=== PATIENT | female | born 1990 | race African-American/Black ===

== ENCOUNTER 2018-07-23 17:05 | Emergency (ER) | payer BC ==
[2018-07-23] MEDS ORDERED: IBUPROFEN 200 MG TAB PO ONE (17:54)
--- NOTE | 2018-07-23 18:55 | ER ---
Nurse's Notes [facility] Name: Kathryn Kirkland Age: 28 yrs Sex: Female : 1990 Arrival Date: 07/23/2018 Time: 17:06 Bed 10 Private MD: Diagnosis: Streptococcal tonsillitis Presentation: 07/23 17:37 Presenting complaint: Patient states: sore throat since yesterday, flu like symptoms ch today. Transition of care: patient was not received from another setting of care. Onset of symptoms was July 22, 2018. Risk Assessment: Do you want to hurt yourself or someone else? Patient reports no desire to harm self or others. Initial Sepsis Screen: Does the patient meet any 2 criteria? No. Patient's initial sepsis screen is negative. Does the patient have a suspected source of infection? No. Patient's initial sepsis screen is negative. Care prior to arrival: None. 17:37 Method Of Arrival: Ambulatory 17:37 Acuity: FAUZIA 4 ch Triage Assessment: 17:38 General: Appears in no apparent distress. comfortable, Behavior is calm, cooperative, ch appropriate for age. Pain: Complains of pain in throat, generalized body aches. 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 Patient has never been vaccinated. - Social history:: Smoking status: Patient/guardian denies using tobacco, Patient/guardian denies using alcohol, street drugs. - Ebola Screening: : Patient negative for fever greater than or equal to 101.5 degrees Fahrenheit, and additional compatible Ebola Virus Disease symptoms Patient denies exposure to infectious person Patient denies travel to an Ebola-affected area in the 21 days before illness onset No symptoms or risks identified at this time. Screenin:11 Abuse screen: Denies threats or abuse. Denies injuries from another. Nutritional ss screening: No deficits noted. Tuberculosis screening: No symptoms or risk factors identified. Never had TB. Fall Risk None identified. Assessment: 18:11 General: Appears uncomfortable, ill, Behavior is calm, cooperative, Reports chills for ss 12-24 hours, fever for 12-24 hours, feeling ill for 12-24 hours, fatigue for 12-24 hours. Pain: Pain currently is 7 out of 10 on a pain scale. Neuro: Level of Consciousness is awake, alert. Cardiovascular: Capillary refill < 3 seconds is brisk in bilateral fingers. Respiratory: Airway is patent Respiratory effort is even, unlabored, Respiratory pattern is regular, symmetrical. GI: Patient currently denies abdominal pain, diarrhea, nausea, vomiting. : No signs and/or symptoms were reported regarding the genitourinary system. EENT: Oral mucosa is moist. Throat is clear. Derm: Skin is intact, is healthy with good turgor, Skin is pink, warm \T\ dry. normal. Musculoskeletal: Circulation, motion, and sensation intact. Range of motion: intact in all extremities, Swelling absent. Vital Signs: 17:38 BP 122 / 75; Pulse 102; Resp 16; Temp 101.1(O); Pulse Ox 99% on R/A; Weight 81.65 kg; Height 5 ft. 5 in. (165.10 cm); Pain 8/10; 18:17 Temp 100.5(O); ss 17:38 Body Mass Index 29.95 (81.65 kg, 165.10 cm) ED Course: 17:06 Patient arrived in ED. as 17:38 Triage completed. 17:38 Arm band placed on left wrist. Patient placed in waiting room. Antipyretics given from triage as ordered by an ER provider. 17:56 Anibal Rai PA is [facility] 17:56 Neftali Christensen MD is Attending Physician. jr8 18:11 Kay Vogt, JAMES is Primary Nurse. 18:11 Patient has correct armband on for positive identification. Bed in low position. Call ss light in reach. 18:17 No provider procedures requiring assistance completed. Patient did not have IV access ss during this emergency room visit. Administered Medications: 17:42 Drug: Motrin 600 mg Route: PO; 18:56 Follow up: Response: No adverse reaction; Temperature is decreased 19:01 Drug: Augmentin 875 mg Route: PO; 19:30 Follow up: Response: No adverse reaction; Medication administered at discharge. Outcome: 18:54 Discharge ordered by . [facility] 19:29 Discharged to home ambulatory. 19:29 Condition: good 19:29 Discharge instructions given to patient, Instructed on discharge instructions, follow up and referral plans. medication usage, Demonstrated understanding of instructions, follow-up care, medications. 19:31 Patient left the ED. Signatures: Chinyere Montano, RN Yani Lynn ch, Shelby, RN RN Anibal Rai PA PA jr8
--- NOTE | 2018-07-23 18:55 | EDPHYS ---
Physician Documentation [facility] Name: Kathryn Kirkland Age: 28 yrs Sex: Female : 1990 Arrival Date: 07/23/2018 Time: 17:06 Bed 10 Private MD: ED Physician Neftali Christensen HPI: 07/23 18:53 This 28 yrs old Black Female presents to ER via Ambulatory with complaints of Flu jr8 Symptoms. 18:53 Onset: The symptoms/episode began/occurred acutely, today. Associated signs and jr8 symptoms: Pertinent positives: Headache, fevers, body aches, sore throat, sinus congestion . The patient has not experienced similar symptoms in the past. The patient has not recently seen a physician. 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 Patient has never been vaccinated. - Social history:: Smoking status: Patient/guardian denies using tobacco, Patient/guardian denies using alcohol, street drugs. - Ebola Screening: : Patient negative for fever greater than or equal to 101.5 degrees Fahrenheit, and additional compatible Ebola Virus Disease symptoms Patient denies exposure to infectious person Patient denies travel to an Ebola-affected area in the 21 days before illness onset No symptoms or risks identified at this time. ROS: 18:53 Neck: Negative for injury, pain, and swelling, Cardiovascular: Negative for chest pain, jr8 palpitations, and edema, Respiratory: Negative for shortness of breath, cough, wheezing, and pleuritic chest pain, Abdomen/GI: Negative for abdominal pain, nausea, vomiting, diarrhea, and constipation, Back: Negative for injury and pain, MS/Extremity: Negative for injury and deformity, Skin: Negative for injury, rash, and discoloration, Neuro: Negative for headache, weakness, numbness, tingling, and seizure. 18:53 Constitutional: Positive for body aches, chills, fever. 18:53 ENT: Positive for sinus congestion, sore throat. Exam: 18:53 Eyes: Pupils equal round and reactive to light, extra-ocular motions intact. Lids and jr8 lashes normal. Conjunctiva and sclera are non-icteric and not injected. Cornea within normal limits. Periorbital areas with no swelling, redness, or edema. ENT: Nares patent. No nasal discharge, no septal abnormalities noted. Tympanic membranes are normal and external auditory canals are clear. Oropharynx with redness. No swelling, or masses, exudates, or evidence of obstruction, uvula midline. Mucous membranes moist. Neck: Trachea midline, no thyromegaly or masses palpated, and no cervical lymphadenopathy. Supple, full range of motion without nuchal rigidity, or vertebral point tenderness. No Meningismus. Cardiovascular: Regular rate and rhythm with a normal S1 and S2. No gallops, murmurs, or rubs. Normal PMI, no JVD. No pulse deficits. Respiratory: Lungs have equal breath sounds bilaterally, clear to auscultation and percussion. No rales, rhonchi or wheezes noted. No increased work of breathing, no retractions or nasal flaring. Abdomen/GI: Soft, non-tender, with normal bowel sounds. No distension or tympany. No guarding or rebound. No evidence of tenderness throughout. Back: No spinal tenderness. No costovertebral tenderness. Full range of motion. Skin: Warm, dry with normal turgor. Normal color with no rashes, no lesions, and no evidence of cellulitis. MS/ Extremity: Pulses equal, no cyanosis. Neurovascular intact. Full, normal range of motion. Neuro: Awake and alert, GCS 15, oriented to person, place, time, and situation. Cranial nerves II-XII grossly intact. Motor strength 5/5 in all extremities. Sensory grossly intact. Cerebellar exam normal. Normal gait. Vital Signs: 17:38 BP 122 / 75; Pulse 102; Resp 16; Temp 101.1(O); Pulse Ox 99% on R/A; Weight 81.65 kg; ch Height 5 ft. 5 in. (165.10 cm); Pain 8/10; 18:17 Temp 100.5(O); ss 17:38 Body Mass Index 29.95 (81.65 kg, 165.10 cm) ch MDM: 18:07 Patient medically screened. deni 18:52 Data reviewed: vital signs, nurses notes, lab test result(s), and as a result, I will jr8 discharge patient. Data interpreted: Pulse oximetry: on room air is 99 %. Interpretation: normal. Counseling: I had a detailed discussion with the patient and/or guardian regarding: the historical points, exam findings, and any diagnostic results supporting the discharge/admit diagnosis, lab results, the need for outpatient follow up, a family practitioner, to return to the emergency department if symptoms worsen or persist or if there are any questions or concerns that arise at home. 07/23 17:37 Order name: Flu 07/23 17:37 Order name: Strep 07/23 17:38 Order name: Influenza Screen (A ; Complete Time: 18:51 EDMS 07/23 17:38 Order name: Group A Streptococcus Rapid Sc; Complete Time: 18:51 EDMS Administered Medications: 17:42 Drug: Motrin 600 mg Route: PO; 18:56 Follow up: Response: No adverse reaction; Temperature is decreased 19:01 Drug: Augmentin 875 mg Route: PO; 19:30 Follow up: Response: No adverse reaction; Medication administered at discharge. ss Disposition: 07/23/18 18:54 Discharged to Home. Impression: Streptococcal tonsillitis. - Condition is Stable. - Discharge Instructions: Strep Throat. - Prescriptions for Augmentin 875- 125 mg Oral Tablet - take 1 tablet by ORAL route every 12 hours for 10 days; 20 tablet. - Work release form, Medication Reconciliation Form, Thank You Letter, Antibiotic Education, Prescription Opioid Use form. - Follow up: Private Physician; When: 1 week; Reason: Recheck today's complaints, Continuance of care, Re-evaluation by your physician. - Problem is new. - Symptoms have improved. - Notes: Tylenol and Motrin for fevers, body ahces, chills Addendum: 07/25/2018 09:29 Co-signature as Attending Physician, Neftali Christensen MD I agree with the assessment and c morin plan of care. Signatures: Dispatcher [facility] Chinyere Montano RN RN ch Anderson, Corey, MD MD cha Smirch, Shelby, RN RN Anibal Rai PA PA jr8 Corrections: (The following items were deleted from the chart) 07/23 19:31 18:54 07/23/2018 18:54 Discharged to Home. Impression: Streptococcal tonsillitis. ss Condition is Stable. Forms are Medication Reconciliation Form, Thank You Letter, Antibiotic Education, Prescription Opioid Use. Follow up: Private Physician; When: 1 week; Reason: Recheck today's complaints, Continuance of care, Re-evaluation by your physician. Problem is new. Symptoms have improved. jr8
[2018-07-23] MEDS ORDERED: AMOX/K CLAV 875 MG TAB ONE (19:09)
[2018-07-23 20:22] VITALS: BP 122/75; O2SAT 99
[2018-07-23 20:25] VITALS: TEMP 100.5
== END 2018-07-23 19:31 | disposition home or self-care (01) ==
LOC: ER 17:05
DX: J02.0 Streptococcal pharyngitis (principal)
CPT/HCPCS: 87081; 87804; 99283

== ENCOUNTER 2018-08-02 11:49 | Emergency (ER) | payer BC ==
[2018-08-02] MEDS ORDERED: ACETAMINOPHEN 500 MG TAB ONE (12:12)
[2018-08-02] MEDS ORDERED: IBUPROFEN 400 MG TAB ONE (13:48)
[2018-08-02] MEDS ORDERED: NA CHLORIDE 0.9% 1,000 ML ONE (13:48)
[2018-08-02 13:59] LABS: Absolute Lymphocytes (CBC) 0.8 K/uL (0.7-4.9); Absolute Monocytes 0.7 K/uL (0.1-1.3); Absolute Neutrophil 7.5 K/uL (1.8-8.0); Basophils % 0.6 % (0-1.3); Eosinophils % 1.2 % (0-4.4); Hematocrit 32.6 % (36.0-45.0); Lymphocytes % 9.1 % (15.3-44.8); MPV 6.9 fL (7.6-11.3); Monocytes % 7.4 % (3.3-12.3)
--- NOTE | 2018-08-02 14:03 | RAD REPORT ---
EXAM DESCRIPTION: RAD - Chest Pa And Lat (2 Views) - 08/02/2018 1:56 pm CLINICAL HISTORY: COUGH Chest pain. COMPARISON: No comparisons FINDINGS: The lungs are clear. The heart is normal in size. No displaced fractures. IMPRESSION: No acute or concerning finding suspected.
[2018-08-02 14:24] LABS: ALT/SGPT 28 U/L (12-78); AST/SGOT 21 U/L (15-37); Albumin 3.7 g/dL (3.4-5.0); Alkaline Phosphatase 56 U/L (45-117); BUN Blood Urea Nitrogen 7 mg/dL (7-18); Bicarbonate 26 mmol/L (21-32); Bilirubin Total 0.2 mg/dL (0.2-1.0); Glucose Level 131 mg/dL (74-106); Potassium 3.2 mmol/L (3.5-5.1); Protein, Total 8.4 g/dL (6.4-8.2); Sodium Level 138 mmol/L (136-145)
--- NOTE | 2018-08-02 14:41 | EDPHYS ---
Physician Documentation [facility] Name: Kathryn Kirkland Age: 28 yrs Sex: Female : 1990 Arrival Date: 08/02/2018 Time: 11:50 Bed 19 Private MD: Rikki Holt ED Physician Neftali Christensen HPI: 08/02 13:31 This 28 yrs old Black Female presents to ER via Ambulatory with complaints of Flu deni Symptoms. 13:31 The patient or guardian reports cough, difficulty breathing, flu symptoms, arthralgias, deni low-grade fever, myalgias. Onset: The symptoms/episode began/occurred 3 day(s) ago. Severity of symptoms: At their worst the symptoms were mild, in the emergency department the symptoms. Modifying factors: The symptoms are alleviated by nothing, the symptoms are aggravated by nothing. Associated signs and symptoms: The patient has no apparent associated signs or symptoms. The patient has not experienced similar symptoms in the past. Historical: - Allergies: 11:57 No Known Drug Allergies; sv - PMHx: 11:57 None; sv - PSHx: 11:57 None; sv - Immunization history:: Flu vaccine is not up to date. - Social history:: Smoking status: Patient/guardian denies using tobacco. - Ebola Screening: : No symptoms or risks identified at this time. - Family history:: not pertinent. ROS: 13:31 Constitutional: Negative for fever, chills, and weight loss, Eyes: Negative for injury, deni pain, redness, and discharge, ENT: Negative for injury, pain, and discharge, Neck: Negative for injury, pain, and swelling, Abdomen/GI: Negative for abdominal pain, nausea, vomiting, diarrhea, and constipation, Back: Negative for injury and pain, : Negative for injury, bleeding, discharge, and swelling, MS/Extremity: Negative for injury and deformity, Skin: Negative for injury, rash, and discoloration, Neuro: Negative for headache, weakness, numbness, tingling, and seizure, Psych: Negative for depression, anxiety, suicide ideation, homicidal ideation, and hallucinations, Allergy/Immunology: Negative for hives, rash, and allergies, Endocrine: Negative for neck swelling, polydipsia, polyuria, polyphagia, and marked weight changes, Hematologic/Lymphatic: Negative for swollen nodes, abnormal bleeding, and unusual bruising. 13:31 Cardiovascular: Positive for palpitations. 13:31 Respiratory: Positive for cough, shortness of breath, at rest. Exam: 13:31 Head/Face: Normocephalic, atraumatic. Eyes: Pupils equal round and reactive to light, deni extra-ocular motions intact. Lids and lashes normal. Conjunctiva and sclera are non-icteric and not injected. Cornea within normal limits. Periorbital areas with no swelling, redness, or edema. ENT: Nares patent. No nasal discharge, no septal abnormalities noted. Tympanic membranes are normal and external auditory canals are clear. Oropharynx with no redness, swelling, or masses, exudates, or evidence of obstruction, uvula midline. Mucous membranes moist. Neck: Trachea midline, no thyromegaly or masses palpated, and no cervical lymphadenopathy. Supple, full range of motion without nuchal rigidity, or vertebral point tenderness. No Meningismus. Chest/axilla: Normal chest wall appearance and motion. Nontender with no deformity. No lesions are appreciated. Respiratory: Lungs have equal breath sounds bilaterally, clear to auscultation and percussion. No rales, rhonchi or wheezes noted. No increased work of breathing, no retractions or nasal flaring. Abdomen/GI: Soft, non-tender, with normal bowel sounds. No distension or tympany. No guarding or rebound. No evidence of tenderness throughout. Back: No spinal tenderness. No costovertebral tenderness. Full range of motion. Female : Normal external genitalia. Skin: Warm, dry with normal turgor. Normal color with no rashes, no lesions, and no evidence of cellulitis. MS/ Extremity: Pulses equal, no cyanosis. Neurovascular intact. Full, normal range of motion. Neuro: Awake and alert, GCS 15, oriented to person, place, time, and situation. Cranial nerves II-XII grossly intact. Motor strength 5/5 in all extremities. Sensory grossly intact. Cerebellar exam normal. Normal gait. 13:31 Cardiovascular: Rate: tachycardic, Rhythm: regular, Pulses: Pulses are 4+ in bilateral radial, brachial, femoral, popliteal, posterior tibial and and dorsalis pedis arteries.. Heart sounds: murmur, Edema: is not appreciated, JVD: is not appreciated. Vital Signs: 11:57 BP 132 / 82; Pulse 122; Resp 18; Temp 103.1(O); Weight 81.65 kg; Height 5 ft. 5 in. sv (165.10 cm); Pain 3/10; 14:24 Pulse 95; Resp 22 S; Temp 99.7(O); Pulse Ox 100% on R/A; Pain 6/10; jl7 11:57 Body Mass Index 29.95 (81.65 kg, 165.10 cm) sv MDM: 12:56 Patient medically screened. [facility] 13:31 Data reviewed: vital signs, nurses notes, lab test result(s), EKG, radiologic studies, [facility] plain films. 08/02 13:30 Order name: CBC with Diff [facility] 08/02 13:30 Order name: Comprehensive Metabolic Panel; Complete Time: 14:[address] [facility] 08/02 13:30 Order name: Blood Culture Adult (2) [facility] 08/02 13:30 Order name: Flu; Complete Time: 14:[address] [facility] 08/02 14:11 Order name: CBC Smear Scan EDMS 08/02 14:52 Order name: Urine Culture 5 08/02 13:30 Order name: Chest Pa And Lat (2 Views) XRAY; Complete Time: 14:[address] [facility] 08/02 14:57 Order name: Urine Dipstick--Ancillary (enter results) 08/02 14:58 Order name: Urine --Ancillary (enter results) 08/02 13:30 Order name: Urine Dipstick-Ancillary (obtain specimen); Complete Time: 14:[address] [facility] 08/02 13:30 Order name: Urine Test (obtain specimen); Complete Time: 14:[address] [facility] Administered Medications: 12:01 Drug: Tylenol 1000 mg Route: PO; sv 14:00 Follow up: Response: No adverse reaction; Temperature is decreased 7 14:00 Drug: NS 0.9% 1000 ml Route: IV; Rate: 1 bolus; Site: right antecubital; jl7 15:09 Follow up: IV Status: Completed infusion; IV Intake: 1000ml 7 14:00 Drug: Motrin 800 mg Route: PO; jl7 15:09 Follow up: Response: No adverse reaction 7 15:00 Drug: Dextromethorphan-Guaifenesin Liquid 10 mg-100 mg/5 mL 10 ml Route: PO; jl7 15:09 Follow up: Response: No adverse reaction jl7 15:01 Drug: Potassium Effervescent Tablet 25 mEq Route: PO; jl7 15:09 Follow up: Response: No adverse reaction 7 15:04 Drug: Tamiflu 75 mg Route: PO; 15:09 Follow up: Response: No adverse reaction jl7 Disposition: 08/02/18 14:40 Discharged to Home. Impression: Fever, unspecified, Acute upper respiratory infection, unspecified, Influenza due to identified novel influenza A virus, Hypokalemia. - Condition is Stable. - Discharge Instructions: Potassium Content of Foods, Fever, Adult, Influenza, Adult, Upper Respiratory Infection, Adult, Cool Mist Vaporizer, Upper Respiratory Infection, Adult, Vfwv-[id number], Influenza, Adult, [id number]-[id number]-[id number], Cough, Adult, Rykd-tf-Dzrh, Cough, Adult, Fever, Adult, [id number]. - Prescriptions for Bromfed DM 2- 30-10 mg/5 mL Oral syrup - take 10 milliliter by ORAL route every 6 hours; 160 milliliter. Tamiflu 75 mg Oral Capsule - take 1 tablet by ORAL route every 12 hours for 5 days; 10 tablet. Zithromax Z- Jordan 250 mg Oral Tablet - take 1 tablet by ORAL route as directed for 5 days Day 1 - take two (2) tablets one time. Day 2, 3, 4 , 5 take one (1) tablet once daily.; 6 tablet. - Medication Reconciliation Form, Thank You Letter, Antibiotic Education, Prescription Opioid Use, Work release form form. - Follow up: Rikki Holt; When: 2 - 3 days; Reason: Recheck today's complaints, Continuance of care, Re-evaluation by your physician. - Problem is new. - Symptoms have improved. Signatures: Dispatcher [employer] [facility] Vivian Thornton RN RN sv Anderson, Corey, MD MD cha Leal, Jahala, RN RN jl7 Corrections: (The following items were deleted from the chart) 14:41 14:40 08/02/2018 14:40 Discharged to Home. Impression: Fever, unspecified; Acute upper deni respiratory infection, unspecified. Condition is Stable. Discharge Instructions: Upper Respiratory Infection, Adult, Cool Mist Vaporizer, Upper Respiratory Infection, Adult, [id number], Cough, Adult, Uqvd-ov-[id number], Cough, Adult, Fever, Adult, Fever, Adult, [id number]-gf-[id number]. Prescriptions for Bromfed DM 2-30-10 mg/5 mL Oral syrup - take 10 milliliter by ORAL route every 6 hours; 160 milliliter, Tamiflu 75 mg Oral Capsule - take 1 tablet by ORAL route every 12 hours for 5 days; 10 tablet, Zithromax 500 mg Oral Tablet - take 1 tablet by ORAL route once daily for 5 days; 5 tablet. and Forms are Medication Reconciliation Form, Thank You Letter, Antibiotic Education, Prescription Opioid Use. Follow up: Rikki Holt; When: 2 - 3 days; Reason: Recheck today's complaints, Continuance of care, Re-evaluation by your physician. Problem is new. Symptoms have improved. [facility] 15:32 14:41 08/02/2018 14:40 Discharged to Home. Impression: Fever, unspecified; Acute upper jl7 respiratory infection, unspecified; Influenza due to identified novel influenza A virus; Hypokalemia. Condition is Stable. Discharge Instructions: Upper Respiratory Infection, Adult, Cool Mist Vaporizer, Upper Respiratory Infection, Adult, [id number]-[id number], Cough, Adult, [id number]-uo-Dcgy, Cough, Adult, Fever, Adult, Fever, Adult, [id number]-vb-Rmed. Prescriptions for Bromfed DM 2-30-10 mg/5 mL Oral syrup - take 10 milliliter by ORAL route every 6 hours; 160 milliliter, Tamiflu 75 mg Oral Capsule - take 1 tablet by ORAL route every 12 hours for 5 days; 10 tablet, Zithromax 500 mg Oral Tablet - take 1 tablet by ORAL route once daily for 5 days; 5 tablet. and Forms are Medication Reconciliation Form, Thank You Letter, Antibiotic Education, Prescription Opioid Use. Follow up: Rikki Holt; When: 2 - 3 days; Reason: Recheck today's complaints, Continuance of care, Re-evaluation by your physician. Problem is new. Symptoms have improved. deni
--- NOTE | 2018-08-02 14:41 | ER ---
Nurse's Notes [facility] Name: Kathryn Kirkland Age: 28 yrs Sex: Female : 1990 Arrival Date: 08/02/2018 Time: 11:50 Bed 19 Private MD: Rikki Holt Diagnosis: Fever, unspecified;Acute upper respiratory infection, unspecified;Influenza due to identified novel influenza A virus;Hypokalemia Presentation: 08/02 11:56 Presenting complaint: Patient states: cough, bodyaches x 2 weeks. Dx with strep 2 weeks sv ago sent home with Augmentin and still has pills left. Transition of care: patient was not received from another setting of care. Onset of symptoms was July 2018. Care prior to arrival: None. 11:56 Method Of Arrival: Ambulatory sv 11:56 Acuity: FAUZIA 3 sv 15:10 Risk Assessment: Do you want to hurt yourself or someone else? Patient reports no jl7 desire to harm self or others. Initial Sepsis Screen: Does the patient meet any 2 criteria? No. Patient's initial sepsis screen is negative. Does the patient have a suspected source of infection? No. Patient's initial sepsis screen is negative. Historical: - Allergies: 11:57 No Known Drug Allergies; sv - PMHx: 11:57 None; sv - PSHx: 11:57 None; sv - Immunization history:: Flu vaccine is not up to date. - Social history:: Smoking status: Patient/guardian denies using tobacco. - Ebola Screening: : No symptoms or risks identified at this time. - Family history:: not pertinent. Screenin:50 Abuse screen: Denies threats or abuse. Denies injuries from another. Nutritional jl7 screening: No deficits noted. Tuberculosis screening: No symptoms or risk factors identified. Fall Risk IV access (20 points). Assessment: 13:30 General: Appears in no apparent distress. uncomfortable, Behavior is calm, cooperative, jl7 appropriate for age. Pain: Complains of pain in chest Pain currently is 6 out of 10 on a pain scale. Quality of pain is described as "It's just sore when I cough.". Neuro: Level of Consciousness is awake, alert, obeys commands, Oriented to person, place, time, situation. Cardiovascular: Heart tones S1 S2 present Patient's skin is warm and dry. Respiratory: Reports cough that is non-productive, persistent Airway is patent Respiratory effort is even, unlabored, Respiratory pattern is regular, symmetrical, Breath sounds are clear bilaterally. Derm: Skin is pink, warm \\T\\ dry. Vital Signs: 11:57 BP 132 / 82; Pulse 122; Resp 18; Temp 103.1(O); Weight 81.65 kg; Height 5 ft. 5 in. sv (165.10 cm); Pain 3/10; 14:24 Pulse 95; Resp 22 S; Temp 99.7(O); Pulse Ox 100% on R/A; Pain 6/10; jl7 11:57 Body Mass Index 29.95 (81.65 kg, 165.10 cm) sv ED Course: 11:50 Patient arrived in ED. mr 11:51 Rikki Holt MD is Private Physician. mr 11:57 Triage completed. sv 11:58 Arm band placed on. sv 12:56 Neftali Christensen MD is Attending Physician. deni 13:30 Inserted saline lock: 20 gauge in right antecubital area, using aseptic technique. jl7 Blood collected. 13:30 Initial lab(s) drawn, by oh, sent to lab. First set of blood cultures drawn by oh, Flu jl7 and/or RSV swab sent to lab. 13:34 Deacon Segura RN is Primary Nurse. jl7 13:47 Second set of blood cultures drawn by oh. jl7 13:50 Patient has correct armband on for positive identification. Bed in low position. Call jl7 light in reach. Side rails up X 1. Pulse ox on. NIBP on. 13:57 Chest Pa And Lat (2 Views) XRAY In Process Unspecified. EDMS 14:40 Rikki Holt MD is Referral Physician. [facility] 15:12 Urine --Ancillary (enter results) Sent. 5 15:12 Urine Dipstick--Ancillary (enter results) Sent. 5 15:12 Urine Culture Sent. 5 15:12 Urine collected: clean catch specimen, clear. 5 15:31 No provider procedures requiring assistance completed. IV discontinued, intact, jl7 bleeding controlled, No redness/swelling at site. Pressure dressing applied. Administered Medications: 12:01 Drug: Tylenol 1000 mg Route: PO; sv 14:00 Follow up: Response: No adverse reaction; Temperature is decreased jl7 14:00 Drug: NS 0.9% 1000 ml Route: IV; Rate: 1 bolus; Site: right antecubital; 15: Follow up: IV Status: Completed infusion; IV Intake: 1000ml 14:00 Drug: Motrin 800 mg Route: PO; 15: Follow up: Response: No adverse reaction 15: Drug: Dextromethorphan-Guaifenesin Liquid 10 mg-100 mg/5 mL 10 ml Route: PO; 15: Follow up: Response: No adverse reaction 15: Drug: Potassium Effervescent Tablet 25 mEq Route: PO; 7 15: Follow up: Response: No adverse reaction 15: Drug: Tamiflu 75 mg Route: PO; 15: Follow up: Response: No adverse reaction Intake: 15:09 IV: 1000ml; Total: 1000ml. [facility] Outcome: 14:40 Discharge ordered by MD. cheema 15:31 Discharged to home ambulatory. [facility] 15:31 Condition: stable 15:31 Discharge instructions given to patient, family, Instructed on discharge instructions, follow up and referral plans. medication usage, Demonstrated understanding of instructions, follow-up care, medications, Prescriptions given X 3. 15:32 Patient left the ED. jl7 Signatures: Dispatcher [employer] Vivian Lemon, Neftali Hutchinson RN, MD MD cha Rivera, Lizzie mr GomezSummer Deacon Florentino RN RN jl7 Corrections: (The following items were deleted from the chart) 11:59 11:56 Presenting complaint: Patient states: cough, bodyaches x 2 weeks. Dx with strep 2 sv weeks ago. sv 11:59 11:57 Resp 18bpm; Temp 103.1F Oral; 81.65 kg; Height 5 ft. 5 in.; BMI: 29.9; Pain 3/10; sv sv 12:02 11:56 Acuity: FAUZIA 4 sv sv 12:02 11:57 BP 132 / 82; Resp 18bpm; Temp 103.1F Oral; 81.65 kg; Height 5 ft. 5 in.; BMI: sv 29.9; Pain 3/10; sv 14:24 13:30 Pulse 95bpm; Resp 22bpm; Spontaneous; Pulse Ox 100% RA; Temp 99.7F Oral; Pain jl7 6/10; jl7 15:05 12:00 Dextromethorphan-Guaifenesin Liquid 10 mg-100 mg/5 mL 10 ml PO jl7 jl7
[2018-08-02] MEDS ORDERED: POTASSIUM 25 MEQ EFFERV TAB ONE (15:02)
[2018-08-02] MEDS ORDERED: DEXAMETHASONE 10 MG/ML VIAL ONE (15:02)
[2018-08-02] MEDS ORDERED: OSELTAMIVIR 75 MG CAP ONE (15:02)
[2018-08-02] MEDS ORDERED: GUAIFENESIN/DM 5 ML UCUP ONE (15:04)
[2018-08-02 15:19] LABS: Anisocytosis 2+; Blood Morphology Comment NOTED (NOT SEEN); Platelet Estimate ADEQ; Urine White Blood Cell Casts OK
[2018-08-02 15:20] LABS: Hypochromasia 1+; Ovalocytes 1+
[2018-08-02 15:44] VITALS: BP 132/82
[2018-08-02 15:45] VITALS: TEMP 99.7; O2SAT 100
[2018-08-02 16:14] LABS: Urine Blood TRACE (NEG); Urine Glucose NEGATIVE (NEG); Urine Protein NEGATIVE (NEG); Urine Specific Gravity 1.015 (1.005-1.030)
[2018-08-02 16:14] LABS: Urine Specific Gravity 1.015 (1.005-1.030)
== END 2018-08-02 15:32 | disposition home or self-care (01) ==
LOC: ER 11:49
DX: J06.9 Acute upper respiratory infection, unspecified (principal); J09.X2 Influenza due to identified novel influenza A virus with other respiratory manifestations; E87.6 Hypokalemia
CPT/HCPCS: 36415; 71046; 80053; 81003; 81025; 85025; 87040; 87086; 87088; 87804; 96360; 99284; J1100; J7030

== ENCOUNTER 2019-08-26 00:50 | Emergency (ER) | payer BC, OTHER ==
[2019-08-26] MEDS ORDERED: TETRACAINE HCL 0.5% 4ML OPTH ONE (01:24)
[2019-08-26] MEDS ORDERED: FLUORESCEIN SODIUM 1 MG/WRAP ONE (01:32)
[2019-08-26] MEDS ORDERED: TOBRAMYCIN SULF 0.3% OPTH OINT ONE (02:17)
--- NOTE | 2019-08-26 02:17 | ER ---
Nurse's Notes [facility] Name: Kathryn Kirkland Age: 29 yrs Sex: Female : 1990 Arrival Date: 08/26/2019 Time: 00:52 Bed 13 Private MD: Diagnosis: Burn of cornea and conjunctival sac, right eye Presentation: 08/25 00:52 Chief complaint: Patient states: I was at work and I accidently got Lemon Plus Neutral jb4 Quat Disinfectant in my eye. I rinsed it for 10 minutes at work. It happened around 0015. 00:52 Coronavirus screen: Proceed with normal triage. Ebola Screen: No symptoms or risks jb4 identified at this time. Initial Sepsis Screen: Does the patient meet any 2 criteria? No. Patient's initial sepsis screen is negative. Does the patient have a suspected source of infection? No. Patient's initial sepsis screen is negative. Risk Assessment: Do you want to hurt yourself or someone else? Patient reports no desire to harm self or others. Onset of symptoms was August 26, 2019 at 00:15. Transition of care: patient was not received from another setting of care. 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 - Social history:: Smoking status: Patient denies any tobacco usage or history of. Patient/guardian denies using alcohol, street drugs. Screenin:52 Abuse screen: Denies threats or abuse. Nutritional screening: No deficits noted. jb4 Tuberculosis screening: No symptoms or risk factors identified. Fall Risk None identified. Assessment: 00:52 General: Appears in no apparent distress. uncomfortable, Behavior is calm, cooperative, jb4 appropriate for age, Pt reports exposure occurred at 0015, and that the contact in the affected eye was removed and eye was rinsed for 10 minutes.. Pain: Complains of pain in right eye Pain does not radiate. Pain currently is 8 out of 10 on a pain scale. Quality of pain is described as burning, Pain began 0015. Neuro: Level of Consciousness is awake, alert, obeys commands, Oriented to person, place, time, situation. Cardiovascular: Patient's skin is warm and dry. Respiratory: Airway is patent Respiratory effort is even, unlabored, Respiratory pattern is regular, symmetrical. GI: No signs and/or symptoms were reported involving the gastrointestinal system. : No signs and/or symptoms were reported regarding the genitourinary system. EENT: Sclera/Cornea are reddened in outer aspect of conjuctiva of right eye, iris of right eye and inner aspect of conjuctiva of right eye. Derm: Skin is intact, Skin is dry, Skin is normal, Skin temperature is warm. Musculoskeletal: Circulation, motion, and sensation intact. Range of motion: intact in all extremities. 01:00 Reassessment: Pt taken to eye wash station. Instructed to flush eyes for 15 minutes. jb4 Provider notified of chemical exposure. 01:05 Reassessment: Poison control contacted. Recommends checking the affected eye for jb4 damage. Continue to monitor for worsening of symptoms or improvement. If symptoms of irritation persist, refer patient to an plate drying machine tender. Provider notified. SDS for cleaning agent Lemon Plus Neutral Quat Disinfectant given to provider. Pt continues to irrigate affected eye. 01:25 Reassessment: Pt taken back to room for eye examination by provider. jb4 01:35 Reassessment: Pt taken to eye wash station for further irrigation due to provider jb4 assessment of eye ph of 8. 01:50 Reassessment: PT reports that her pain is now 6/10. Reports the entire eye is no longer jb4 hurting. It is just the lower eye lid. Provider notified. Pt taken back to room for eye examination. 01:55 Reassessment: Provider reports PH remains the same. Pt taken back to eye wash station. jb4 02:23 Reassessment: Patient appears in no apparent distress at this time. Patient and/or jb4 family updated on plan of care and expected duration. Pain level reassessed. Patient is alert, oriented x 3, equal unlabored respirations, skin warm/dry/pink. Provider reports the PH appears to have come down to 7.3. Pt reports eye is no longer burning. Pt verbalized understanding of d/c and follow up instructions. Denies questions or concerns. Ambulated out of ED with steady gait. Patient denies pain at this time. Patient states feeling better. Patient states symptoms have improved. Vital Signs: 00:52 BP 133 / 99; Pulse 83; Resp 16; Temp 98.4(O); Pulse Ox 99% on R/A; Weight 88.45 kg (R); jb4 Height 5 ft. 6 in. (167.64 cm) (R); Pain 8/10; 02:30 BP 122 / 80; Pulse 75; Resp 16; Pulse Ox 98% on R/A; jb4 00:52 Body Mass Index 31.47 (88.45 kg, 167.64 cm) jb4 ED Course: 00:52 Patient arrived in ED. cl3 00:52 Arm band placed on right wrist. jb4 00:52 Patient has correct armband on for positive identification. Bed in low position. Call jb4 light in reach. Side rails up X 1. Pulse ox on. NIBP on. 00:53 Rikki Lei RN is Primary Nurse. [facility] 01:15 Chris Olson PA is PHCP. [facility] 01:15 Neftali Christensen MD is Attending Physician. [facility] 01:33 Triage completed. jb4 02:31 No provider procedures requiring assistance completed. Patient did not have IV access jb4 during this emergency room visit. Administered Medications: 01:30 Drug: Tetracaine Drops 0.5 % 1 drops {Note: Administered by ED provider..} Route: jb4 Ophthalmic; Site: right eye; 01:45 Follow up: Response: No adverse reaction; Pain is decreased jb4 02:17 Drug: Tobramycin Ointment (0.3 %) 0.5 inches Route: Ophthalmic; Site: right eye; jb4 02:23 Follow up: Response: No adverse reaction [facility] Outcome: 02:16 Discharge ordered by . [facility] 02:31 Discharged to home ambulatory. jb4 02:31 Condition: stable 02:31 Discharge instructions given to patient, Instructed on discharge instructions, follow up and referral plans. medication usage, Demonstrated understanding of instructions, follow-up care, medications, Prescriptions given X 1. 02:34 Patient left the ED. [facility] Signatures: Chris Olson PA PA Rikki Craft RN RN jb4 Rashad Severino cl3 Corrections: (The following items were deleted from the chart) 02:32 02:23 Reassessment: Patient appears in no apparent distress at this time. Patient jb4 and/or family updated on plan of care and expected duration. Pain level reassessed. Patient is alert, oriented x 3, equal unlabored respirations, skin warm/dry/pink. Provider reports the PH appears to have come down to 7.3. Pt reports eye is no longer burning. Pt verbalized understanding of d/c and follow up instructions. Denies questions or concerns. Ambulated out of ED with steady gait. jb4
--- NOTE | 2019-08-26 02:17 | EDPHYS ---
Physician Documentation [facility] Name: Kathryn Kirkland Age: 29 yrs Sex: Female : 1990 Arrival Date: 08/26/2019 Time: 00:52 Bed 13 Private MD: ED Physician Neftali Christensen HPI: 08/25 01:15 This 29 yrs old Black Female presents to ER via Ambulatory with complaints of Director Engineering jmm In Eye. 01:15 The patient is experiencing burning. Onset: The symptoms/episode began/occurred jmm acutely, just prior to arrival. Duration: the symptoms are continuous. Aggravated by nothing. Alleviated by nothing. Associated signs and symptoms: Pertinent positives: headache. This is a 29 year old female with no chronic medical conditions that presents to the ED with complaints of right eye pain after a splash injury from Lemon-Quat Disinfectant. Patient took her contact out and irrigated for 10 minutes. Patient denies other injury. . 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 - Social history:: Smoking status: Patient denies any tobacco usage or history of. Patient/guardian denies using alcohol, street drugs. ROS: 01:15 Constitutional: Negative for fever, chills, and weight loss, Cardiovascular: Negative jmm for chest pain, palpitations, and edema, Respiratory: Negative for shortness of breath, cough, wheezing, and pleuritic chest pain. 01:15 Eyes: Positive for injury or acute deformity, pain. 01:15 Neuro: Positive for headache. 01:15 All other systems are negative. Exam: 01:15 Constitutional: This is a well developed, well nourished patient who is awake, alert, jmm and in no acute distress. Head/Face: atraumatic. 01:15 Neck: Trachea midline, Supple Chest/axilla: Normal chest wall appearance and motion. Cardiovascular: Regular rate and rhythm. No edema appreciated Respiratory: Normal respirations, no respiratory distress appreciated Abdomen/GI: Non distended, soft Back: Normal ROM 01:15 Skin: General appearance color normal MS/ Extremity: Moves all extremities, no obvious deformities appreciated, no edema noted to the lower extremities Neuro: Awake and alert, normal gait Psych: Behavior is normal, Mood is normal, Patient is cooperative and pleasant 01:15 Eyes: right eye is injected. 01:15 Eyes: Conjunctiva: injected, in the right eye. Vital Signs: 00:52 BP 133 / 99; Pulse 83; Resp 16; Temp 98.4(O); Pulse Ox 99% on R/A; Weight 88.45 kg (R); jb4 Height 5 ft. 6 in. (167.64 cm) (R); Pain 8/10; 02:30 BP 122 / 80; Pulse 75; Resp 16; Pulse Ox 98% on R/A; jb4 00:52 Body Mass Index 31.47 (88.45 kg, 167.64 cm) jb MDM: 01:15 Patient medically screened. [facility] 02:13 Data reviewed: vital signs, nurses notes. Counseling: I had a detailed discussion with linda the patient and/or guardian regarding: the historical points, exam findings, and any diagnostic results supporting the discharge/admit diagnosis, the need for outpatient follow up, to return to the emergency department if symptoms worsen or persist or if there are any questions or concerns that arise at home. ED course: Right eye irrigated for a total of 25 minutes. Patient does have complete relief of the right eye but has some mild burning at the lower eyelid. PH of 7.0 using litmus paper. Patient is advised to follow up with ophthalmology for reevaluation and otherwise given strict return precautions. Patient understood and agrees with the plan of care. . 08/25 01:31 [facility]: [facility]RIGATE E[facility]; Complete Time: 01:32 [facility] Administered Medications: 01:30 Drug: Tetracaine Drops 0.5 % 1 drops {Note: Administered by ED provider..} Route: jb4 Ophthalmic; Site: right eye; 01:45 Follow up: Response: No adverse reaction; Pain is decreased [facility] 02:17 Drug: Tobramycin Ointment (0.3 %) 0.5 inches Route: Ophthalmic; Site: right eye; jb4 02:23 Follow up: Response: No adverse reaction [facility] Disposition: 08/26/19 02:16 Discharged to Home. Impression: Burn of cornea and conjunctival sac, right eye. - Condition is Stable. - Discharge Instructions: Chemical Conjunctivitis, Adult. - Prescriptions for Tobrex 0.3 % Ophthalmic ointment - apply 1 application by OPHTHALMIC route 2 times per day; 1 tube. - Medication Reconciliation Form, Thank You Letter, Antibiotic Education, Prescription Opioid Use, Work release form form. - Follow up: Private Physician; When: 1 - 2 days; Reason: Recheck today's complaints, Continuance of care, Re-evaluation by your physician. Addendum: 08/28/2019 07:41 Co-signature as Attending Physician, Neftali Christensen MD I agree with the assessment and c morin plan of care. Signatures: Neftali Christensen MD MD cha Mickail, Joel, PA PA Rikki Beverly, RN RN jb4 Corrections: (The following items were deleted from the chart) 08/25 02:34 02:16 08/26/2019 02:16 Discharged to Home. Impression: Burn of cornea and conjunctival jb4 sac, right eye. Condition is Stable. Forms are Medication Reconciliation Form, Thank You Letter, Antibiotic Education, Prescription Opioid Use. Follow up: Private Physician; When: 1 - 2 days; Reason: Recheck today's complaints, Continuance of care, Re-evaluation by your physician. linda
[2019-08-26 02:40] VITALS: TEMP 98.4
[2019-08-26 02:42] VITALS: BP 122/80; O2SAT 98
== END 2019-08-26 02:34 | disposition home or self-care (01) ==
LOC: ER 00:50
DX: T26.11XA Burn of cornea and conjunctival sac, right eye, initial encounter (principal); X58.XXXA Exposure to other specified factors, initial encounter
CPT/HCPCS: 99283

== ENCOUNTER 2020-07-09 18:16 | Emergency (ER) | payer OTHER ==
--- OUTSIDE RECORDS SUMMARY | 2020-07-09 18:19 | XMS REPORT | Continuity of Care Document ---
:1990 Author Organization [facility] t Address [address] [place] [address] [address]. [address] [place] [address] Care Team Providers Name Role Phone DR JOHN Attending Clinician Unavailable DR JOHN Admitting Clinician Unavailable Problems This patient has no known problems. Allergies, Adverse Reactions, Alerts This patient has no known allergies or adverse reactions. Medications This patient has no known medications. Procedures This patient has no known procedures. Encounters Start End Encounter Admission Attending Care Care Encounter Source Date/Time Date/Time Type Type Clinicians Facility Department ID 2019-09-08 In[place] [facility] [id number] [facility] 00:[place]:00 [facility] Results This patient has no known results.
[2020-07-09 20:26] LABS: Absolute Lymphocytes (CBC) 2.3 K/uL (0.7-4.9); Lymphocytes % 37.5 % (15.3-44.8); MPV 7.1 fL (7.6-11.3); RBC Red Blood Cell Count 2.72 M/uL (3.86-4.86)
[2020-07-09 20:28] LABS: Hematocrit 17.3 % (36.0-45.0)
[2020-07-09 20:29] LABS: Anisocytosis 2+; Blood Morphology Comment NOTED (NOT SEEN); Hypochromasia 2+; Platelet Estimate INCR; White Blood Cell Scan OK (OK)
[2020-07-09 20:45] LABS: ALT/SGPT 27 U/L (12-78); AST/SGOT 21 U/L (15-37); Albumin 3.3 g/dL (3.4-5.0); Alkaline Phosphatase 48 U/L (45-117); BUN Blood Urea Nitrogen 9 mg/dL (7-18); Bicarbonate 26 mmol/L (21-32); Bilirubin Total 0.2 mg/dL (0.2-1.0); Glucose Level 111 mg/dL (74-106); Potassium 3.2 mmol/L (3.5-5.1); Protein, Total 7.4 g/dL (6.4-8.2); Sodium Level 143 mmol/L (136-145)
[2020-07-09] MEDS ORDERED: NA CHLORIDE 0.9% 500 ML ONE (21:58)
[2020-07-10 06:00] LABS: Hematocrit 23.2 % (36.0-45.0)
--- NOTE | 2020-07-10 06:21 | ER ---
Nurse's Notes [facility] Name: Kathryn Kirkland Age: 30 yrs Sex: Female : 1990 Arrival Date: 07/09/2020 Time: 18:18 Bed 30 Private MD: Diagnosis: Other abnormal uterine and vaginal bleeding;Anemia in other chronic diseases classified elsewhere Presentation: 07/09 18:30 Chief complaint: Patient states: Sent in by PCP for blood transfusion. HGB is low, had ll1 blood drawn here earlier today. On her period for past 4 months. Feels weak, tired, SOB, and CP at times. Coronavirus screen: Client denies travel out of the [place] in the last 14 days. At this time, the client does not indicate any symptoms associated with coronavirus-19. Ebola Screen: Patient denies travel to an Ebola-affected area in the 21 days before illness onset. Initial Sepsis Screen: Does the patient meet any 2 criteria? HR > 90 bpm. No. Patient's initial sepsis screen is negative. Does the patient have a suspected source of infection? No. Patient's initial sepsis screen is negative. Risk Assessment: Do you want to hurt yourself or someone else? Patient reports no desire to harm self or others. Onset of symptoms was March 31, 2020. 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 - Social history:: Smoking status: Patient denies any tobacco usage or history of. Screenin:21 Abuse screen: Denies threats or abuse. Nutritional screening: No deficits noted. em Tuberculosis screening: No symptoms or risk factors identified. Fall Risk None identified. Assessment: 20:00 General: Appears in no apparent distress. comfortable, Behavior is calm, cooperative, em appropriate for age. Pain: Denies pain. Neuro: Level of Consciousness is awake, alert, obeys commands, Oriented to person, place, time, situation. Cardiovascular: Capillary refill < 3 seconds Patient's skin is warm and dry. Respiratory: Reports shortness of breath on exertion Airway is patent Respiratory effort is even, unlabored, Respiratory pattern is regular, symmetrical. GI: Patient currently denies bloody stool, nausea, vomiting. : Reports vaginal bleeding that is with clots, heavy flow. Derm: Skin is intact, is healthy with good turgor, Skin is pink, warm \T\ dry. Musculoskeletal: Capillary refill < 3 seconds, Range of motion: intact in all extremities. 21:30 Reassessment: Patient appears in no apparent distress at this time. Patient and/or wh family updated on plan of care and expected duration. Pain level reassessed. Patient is alert, oriented x 3, equal unlabored respirations, skin warm/dry/pink. Consent for BT signed. 23:00 Reassessment: Patient appears in no apparent distress at this time. Patient and/or wh family updated on plan of care and expected duration. Pain level reassessed. Patient is alert, oriented x 3, equal unlabored respirations, skin warm/dry/pink. Initiated blood transfusion. 07/10 02:03 Reassessment: Patient appears in no apparent distress at this time. Patient and/or wh family updated on plan of care and expected duration. Pain level reassessed. Patient is alert, oriented x 3, equal unlabored respirations, skin warm/dry/pink. 2nd unit PRBC BT initiated. 04:07 Reassessment: Patient appears in no apparent distress at this time. Patient and/or wh family updated on plan of care and expected duration. Pain level reassessed. Patient is alert, oriented x 3, equal unlabored respirations, skin warm/dry/pink. S/P BT 2 units PRBC. 06:32 Reassessment: Patient appears in no apparent distress at this time. Patient and/or wh family updated on plan of care and expected duration. Pain level reassessed. Patient is alert, oriented x 3, equal unlabored respirations, skin warm/dry/pink. Patient states feeling better. Patient states symptoms have improved. Vital Signs: 07/09 18:30 BP 143 / 76; Pulse 100; Resp 17; Temp 99.2; Pulse Ox 100% ; Weight 89.36 kg; Height 5 ll1 ft. 6 in. (167.64 cm); Pain 6/10; 23:00 BP 131 / 74; Pulse 88; Resp 18; Pulse Ox 100% on R/A; 07/10 02:03 BP 106 / 51; Pulse 84; Resp 18; Pulse Ox 100% on R/A; 04:08 BP 128 / 77; Pulse 79; Resp 16; Pulse Ox 100% on R/A; 06:00 BP 112 / 68; Pulse 78; Resp 18; Pulse Ox 100% ; 07/09 18:30 Body Mass Index 31.80 (89.36 kg, 167.64 cm) [facility] ED Course: 07/09 18:18 Patient arrived in ED. as 18:32 Triage completed. 1 18:32 Arm band placed on Patient placed in an exam room, on a stretcher. 1 19:24 Moses Carey MD is Attending Physician. tw4 19:33 Dwain Yang, JAMES is Primary Nurse. em 20:10 Initial lab(s) drawn, by ny, sent to lab. T\T\S collected, blood band applied to patient. em Inserted saline lock: 22 gauge in right antecubital area, using aseptic technique. Blood collected. 20:21 Patient has correct armband on for positive identification. Placed in gown. Bed in low em position. Side rails up X2. 07/10 06:20 Jeannie Funes MD is Referral Physician. tw4 06:20 Zohreh Pack MD is Referral Physician. tw4 06:20 Jennifer Pittman MD is Referral Physician. tw4 06:32 No provider procedures requiring assistance completed. IV discontinued, intact, wh bleeding controlled, No redness/swelling at site. Administered Medications: No medications were administered Outcome: 06:21 Discharge ordered by MD. tw4 06:33 Discharged to home ambulatory. 06:33 Condition: stable 06:33 Discharge instructions given to patient, Instructed on discharge instructions, follow up and referral plans. crutch walking, urine strainer, wound care, POC Demonstrated understanding of instructions, follow-up care, POC 06:33 Patient left the ED. Signatures: Dwain Yang, RN Yani Sharma Winsy, RN RN Moses Carey MD MD [facility] Meera Severino RN RN [facility] Corrections: (The following items were deleted from the chart) 07/09 23:31 23:00 Reassessment: Patient appears in no apparent distress at this time. Patient wh and/or family updated on plan of care and expected duration. Pain level reassessed. Patient is alert, oriented x 3, equal unlabored respirations, skin warm/dry/pink. wh
--- NOTE | 2020-07-10 06:22 | EDPHYS ---
Physician Documentation [facility] Name: Kathryn Kirkland Age: 30 yrs Sex: Female : 1990 Arrival Date: 07/09/2020 Time: 18:18 Bed 30 Private MD: ED Physician Moses Carey HPI: 07/10 03:44 This 30 yrs old Black Female presents to ER via Ambulatory with complaints of Abnormal tw4 Lab Results. 03:44 ABNORMAL LABS. Onset: The symptoms/episode began/occurred 3 week(s) ago. Severity of tw4 symptoms: At their worst the symptoms were moderate in the emergency department the symptoms are unchanged. The patient has not experienced similar symptoms in the past. 03:53 PT STATES THAT SHE HAS BEEN HAVING HEAVY VAGINAL BLEEDING FOR THE LAST FEW MONTHS. 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 - Social history:: Smoking status: Patient denies any tobacco usage or history of. ROS: 07/10 03:44 Constitutional: Negative for fever, chills, and weight loss, Eyes: Negative for injury, tw4 pain, redness, and discharge, Respiratory: Negative for shortness of breath, cough, wheezing, and pleuritic chest pain, Abdomen/GI: Negative for abdominal pain, nausea, vomiting, diarrhea, and constipation. Back: Negative for injury and pain, MS/Extremity: Negative for injury and deformity, Skin: Negative for injury, rash, and discoloration, Neuro: Negative for headache, weakness, numbness, tingling, and seizure. Cardiovascular: Positive for palpitations. Exam: 03:44 Constitutional: This is a well developed, well nourished patient who is awake, alert, tw4 and in no acute distress. Head/Face: Normocephalic, atraumatic. Chest/axilla: Normal chest wall appearance and motion. Nontender with no deformity. No lesions are appreciated. Cardiovascular: Regular rate and rhythm with a normal S1 and S2. No gallops, murmurs, or rubs. Normal PMI, no JVD. No pulse deficits. Respiratory: Lungs have equal breath sounds bilaterally, clear to auscultation and percussion. No rales, rhonchi or wheezes noted. No increased work of breathing, no retractions or nasal flaring. Abdomen/GI: Soft, non-tender, with normal bowel sounds. No distension or tympany. No guarding or rebound. No evidence of tenderness throughout. Back: No spinal tenderness. No costovertebral tenderness. Full range of motion. Skin: Warm, dry with normal turgor. Normal color with no rashes, no lesions, and no evidence of cellulitis. MS/ Extremity: Pulses equal, no cyanosis. Neurovascular intact. Full, normal range of motion. Neuro: Awake and alert, GCS 15, oriented to person, place, time, and situation. Cranial nerves II-XII grossly intact. Motor strength 5/5 in all extremities. Sensory grossly intact. Cerebellar exam normal. Normal gait. Vital Signs: 07/09 18:30 BP 143 / 76; Pulse 100; Resp 17; Temp 99.2; Pulse Ox 100% ; Weight 89.36 kg; Height 5 ll1 ft. 6 in. (167.64 cm); Pain 6/10; 23:00 BP 131 / 74; Pulse 88; Resp 18; Pulse Ox 100% on R/A; wh 07/10 02:03 BP 106 / 51; Pulse 84; Resp 18; Pulse Ox 100% on R/A; wh 04:08 BP 128 / 77; Pulse 79; Resp 16; Pulse Ox 100% on R/A; wh 06:00 BP 112 / 68; Pulse 78; Resp 18; Pulse Ox 100% ; 07/09 18:30 Body Mass Index 31.80 (89.36 kg, 167.64 cm) ll1 MDM: 07/09 19:24 Patient medically screened. tw4 07/10 03:44 Data reviewed: vital signs, nurses notes. Data interpreted: Pulse oximetry: tw4 Interpretation: normal. Counseling: I had a detailed discussion with the patient and/or guardian regarding: the historical points, exam findings, and any diagnostic results supporting the discharge/admit diagnosis. Special discussion: I discussed with the patient/guardian in detail that at this point there is no indication for admission to the hospital. It is understood, however, that if the symptoms persist or worsen the patient needs to return immediately for re-evaluation. 07/09 19:53 Order name: CBC with Diff [facility] 07/09 19:53 Order name: CMP [facility] 07/09 19:53 Order name: Type And Screen [facility] 07/09 19:54 Order name: CBC with Automated Diff; Complete Time: 02:54 [facility] 07/09 19:54 Order name: Comprehensive Metabolic Panel; Complete Time: 02:54 [facility] 07/09 19:54 Order name: Type and Screen [facility] 07/09 20:29 Order name: CBC Smear Scan; Complete Time: 54 [facility] 07/09 21:27 Order name: ABO/RH no charge; Complete Time: 54 [facility] 07/09 22:12 Order name: Packed RBCs (Additional Unit) [facility] 07/10 04:13 Order name: Hemoglobin 07/10 04:13 Order name: Hematocrit 07/10 04:13 Order name: Hemoglobin [facility] 07/10 04:13 Order name: Hematocrit [facility] Administered Medications: No medications were administered Disposition: 07/10/20 06:21 Discharged to Home. Impression: Other abnormal uterine and vaginal bleeding, Anemia in other chronic diseases classified elsewhere. - Condition is Stable. - Discharge Instructions: Anemia, Nonspecific, Blood Transfusion, Adult, Dysfunctional Uterine Bleeding, Blood Transfusion, [id number], Blood Transfusion, Care After, [id number]. - Medication Reconciliation Form, Thank You Letter, Antibiotic Education, Prescription Opioid Use form. - Follow up: Jeannie Funes MD; When: Upon discharge from the Emergency Department; Reason: Recheck today's complaints, Continuance of care, Re-evaluation by your physician. Follow up: Zohreh Pack MD; When: Upon discharge from the Emergency Department; Reason: If symptoms return, Recheck today's complaints, Continuance of care, Re-evaluation by your physician. Follow up: Jennifer Pittman MD; When: Upon discharge from the Emergency Department; Reason: If symptoms return, Recheck today's complaints, Continuance of care, Re-evaluation by your physician. Signatures: Dispatcher [employer] EDDC Anibal Rai PA PA [id number] Mamta Mcqueen RN RN Moses Carey MD MD tw4 Maycol, Lynsay, RN RN ll1 Corrections: (The following items were deleted from the chart) 06:33 06:21 07/10/2020 06:21 Discharged to Home. Impression: Other abnormal uterine and wh vaginal bleeding; Anemia in other chronic diseases classified elsewhere. Condition is Stable. Forms are Medication Reconciliation Form, Thank You Letter, Antibiotic Education, Prescription Opioid Use. Follow up: Jeannie Funes; When: Upon discharge from the Emergency Department; Reason: Recheck today's complaints, Continuance of care, Re-evaluation by your physician. Follow up: Zohreh Woody; When: Upon discharge from the Emergency Department; Reason: If symptoms return, Recheck today's complaints, Continuance of care, Re-evaluation by your physician. Follow up: Jennifer Pittman; When: Upon discharge from the Emergency Department; Reason: If symptoms return, Recheck today's complaints, Continuance of care, Re-evaluation by your physician. tw4
== END 2020-07-10 06:33 | disposition home or self-care (01) ==
LOC: ER 18:16
DX: N93.8 Other specified abnormal uterine and vaginal bleeding (principal); D63.8 Anemia in other chronic diseases classified elsewhere
CPT/HCPCS: 85025; 36415 ×2; 86900; 86850; 86901; 85018; 85014; 80053; 99284; P9016 ×2; J7050

== ENCOUNTER 2020-07-11 08:52 | Day surgery (SDC) | payer OTHER ==
[2020-07-11] MEDS ORDERED: FENTANYL CITR 100 MCG/2 ML ONE ×2 (08:59→10:31)
[2020-07-11] MEDS ORDERED: propofoL 200 MG/20 ML VIAL IV ONE ×2 (08:59→10:31)
[2020-07-11] MEDS ORDERED: ONDANSETRON 4 MG/2 ML VIAL ONE ×2 (09:00→10:31)
[2020-07-11] MEDS ORDERED: MIDAZOLAM HCL 2 MG/2 ML INJ ONE ×2 (09:00→10:31)
[2020-07-11] MEDS ORDERED: dexAMETHasone 10 MG/ML VIAL ONE ×2 (09:00→10:31)
[2020-07-11] MEDS ORDERED: KETOROLAC 30 MG/ML INJ ONE ×2 (09:00→10:31)
[2020-07-11] MEDS ORDERED: LIDOCAINE 1% MPF 2 ML AMPULE ONE ×2 (09:00→10:31)
[2020-07-11] MEDS ORDERED: NA CHLORIDE 0.9% 1,000 ML ONE ×2 (09:34→13:10)
[2020-07-11] MEDS ORDERED: ACETAMINOPHEN 325 MG TABLET ONE (09:48)
[2020-07-11 09:53] LABS: Absolute Lymphocytes (CBC) 2.3 K/uL (0.7-4.9); Basophils % 1.4 % (0-1.3); Hematocrit 24.8 % (36.0-45.0); Lymphocytes % 40.1 % (15.3-44.8); MPV 6.8 fL (7.6-11.3); RBC Red Blood Cell Count 3.64 M/uL (3.86-4.86)
[2020-07-11 10:23] LABS: White Blood Cell Scan OK (OK)
[2020-07-11 10:24] LABS: Anisocytosis 3+; Blood Morphology Comment NOTED (NOT SEEN); Hypochromasia 2+; Platelet Estimate ADEQ
[2020-07-11] MEDS ORDERED: NA CHLORIDE 0.9% 250 ML ONE ×2 (10:45→13:12)
[2020-07-11] MEDS ORDERED: LIDOCAINE 1% W/EPI 1:100,000 MDV 20 ML VIAL ONE (13:10)
[2020-07-11 15:45] LABS: Hematocrit 31.1 % (36.0-45.0)
[2020-07-11 17:37] VITALS: BP 125/71; TEMP 97.3; O2SAT 98
--- NOTE | 2020-07-14 11:35 | OP ---
Date of Procedure: 07/11/2020 Surgeon: Jeannie Funes MD Preoperative Diagnosis: Menorrhagia. Postoperative Diagnoses: Menorrhagia and chronic severe blood-loss anemia. Procedure Performed: Hysteroscopy, dilation and curettage. Anesthesia: MAC plus paracervical block. Specimens: Endometrial curettings. Complications: No complications. Drains: No drains. Condition: The patient's condition is stable. Indications: The patient is a 30-year-old female with heavy menstrual periods after prior history of irregular heavy periods and PCOS. She was treated with depot medroxyprogesterone acetate and her bl eeding has not slowed. On the contrary, she has been having heavy prolonged bleeding to the point th at her hemoglobin was down to less than 6 g. She has been transfused with 2 units, sent over from [facility] primary care's office to the ER, subsequently followed up in the office after evaluation and ultras ound. Endometrium appeared to be thickened ruling out atypia and malignancy. Before we continue to treat t his patient very important, so she was consented for hysteroscopy, D and C, possible polypectomy, and brought to the hospital. Description Of Procedure: After informed consent was verified and taken back to the OR and after she was explained that the risks included bleeding, infection, injury to uterus including perforation an d further problems consequent to that and procedure was started. After giving MAC, she was placed in dorsal lithotomy position using Yakov stirrups. Speculum used to expose the cervix, injected with 1% lidocaine at 12 o'clock and 4 and 6 o'clock positions with 1:100 ,000 epinephrine dilution, 5 cc at each side. Prep x3 with Betadine was done. Anterior lip grasped with 2 Allis clamps. Diagnostic SlimLine hysteroscope with normal saline and 30 degree lens used for performing the hysteroscopy traversing the cervical canal under direct visualization. The uterine c avity was anteflexed. No evidence of any intracavitary mass. Endometrium appeared to be thickened, clots present. Scope pulled out. Endometrial curettage was performed in usual sterile fashion all a round on all the awad being mindful of not causing excessive injury leading to Asherman's. After adequate curettage was performed, the intent was not only sampling, but also to denude the endo metrium enough to the point that it can help her bleeding. All the instruments were removed. Instru ment, needle and sponge counts were done and were correct. Bleeding was minimal. The patient was ta ngoc back to the PACU after recovery from anesthesia. She has a followup appointment in 1 week. She has been given another 2 units of blood transfusion. Hemoglobin would be drawn before she leaves. T he second unit was during the case. CHUCHO Voice ID: [id number] Report ID: [id number]
== END 2020-07-11 15:55 | disposition home or self-care (01) ==
LOC: OR 08:52
PROVIDERS: ATTEND Obstetrics & Gynecology
PROC: 30233N1 Transfusion of Nonautologous Red Blood Cells into Peripheral Vein, Percutaneous Approach (ICD-10-PCS; 2020-07-11)
PROC: 0UDB8ZX Extraction of Endometrium, Via Natural or Artificial Opening Endoscopic, Diagnostic (ICD-10-PCS; principal; 2020-07-11 11:30)
DX: N71.1 Chronic inflammatory disease of uterus (principal); N84.0 Polyp of corpus uteri; D62 Acute posthemorrhagic anemia; N94.6 Dysmenorrhea, unspecified; D50.9 Iron deficiency anemia, unspecified; B37.3 Candidiasis of vulva and vagina; Z20.822 Contact with and (suspected) exposure to COVID-19
CPT/HCPCS: 58558; 85025; 36415; 86900; 86850; 81025; 86901; 82947 ×2; 88305; 85018; 85014; 36430; U0002; J2704; J2250; J3010; J1100; J2001; P9016 ×2; J7050 ×2; J7030 ×2; J2405; P9021